=== PATIENT | male | born 1945 | race Caucasian/White ===

== ENCOUNTER → 2020-03-16 | Outpatient (CLI) | payer OTHER ==
[~2020-03-16] MED LIST: ASPIRIN EC81 M1 PO; CARDURA XL4 MG PO; FISH OIL + D31 EACH PO; LUMIGAN2.5 M1; METFORMIN HCL500 M2 PO; PAIN & FEVER500 MG PO; PRAVASTATIN SOD10 MG PO; THERA-M CAPLET1 EACH PO
== END ==
LOC: CAT 13:35
PROVIDERS: ATTEND Family Medicine
DX: R91.8 Other nonspecific abnormal finding of lung field (principal); I25.10 Atherosclerotic heart disease of native coronary artery without angina pectoris; Z87.891 Personal history of nicotine dependence

== ENCOUNTER → 2020-11-06 | Outpatient (CLI) | payer OTHER | LOC: CAT 09:27 | PROVIDERS: ATTEND Family Medicine | DX: I25.10 Atherosclerotic heart disease of native coronary artery without angina pectoris (principal); N20.0 Calculus of kidney; J18.8 Other pneumonia, unspecified organism; I70.0 Atherosclerosis of aorta; M25.78 Osteophyte, vertebrae; R91.8 Other nonspecific abnormal finding of lung field ==

== ENCOUNTER → 2021-03-28 | Outpatient (CLI) | payer OTHER | END | disposition home or self-care (01) | LOC: CAT 13:51 | PROVIDERS: ATTEND Family Medicine | DX: R63.4 Abnormal weight loss (principal) ==